=== PATIENT | male | born 1960 | race Caucasian/White ===

== ENCOUNTER 2016-10-11 18:48 | Emergency (ER) | payer MEDICARE, MEDICAID ==
--- NOTE | 2016-10-11 19:21 | NUR ---
CALLED X4; INFORMED PT LEFT AT 1840
== END 2016-10-11 19:22 | disposition left against medical advice (07) ==
LOC: ER 18:49
DX: Z53.21 Procedure and treatment not carried out due to patient leaving prior to being seen by health care provider (principal)

== ENCOUNTER 2016-11-19 05:12 | Emergency (ER) | payer MEDICARE, MEDICAID ==
[~2016-11-19] VITALS: Ht 185.4 cm; Wt 77.1 kg
[2016-11-19 05:20] VITALS: BP 147/93
== END 2016-11-19 07:29 | disposition home or self-care (01) ==
LOC: ER 05:14
DX: S90.852A Superficial foreign body, left foot, initial encounter (principal); E11.9 Type 2 diabetes mellitus without complications; K21.9 Gastro-esophageal reflux disease without esophagitis; F17.200 Nicotine dependence, unspecified, uncomplicated; B19.20 Unspecified viral hepatitis C without hepatic coma; Z98.890 Other specified postprocedural states; W22.8XXA Striking against or struck by other objects, initial encounter; Y93.89 Activity, other specified; Y92.89 Other specified places as the place of occurrence of the external cause; Y99.9 Unspecified external cause status
CPT/HCPCS: 73630-TC; A4606; Z7610

== ENCOUNTER 2017-02-08 03:36 | Emergency (ER) | payer MEDICARE ==
[~2017-02-08] VITALS: Ht 175.3 cm; Wt 68.0 kg
[2017-02-08 04:05] VITALS: BP 141/75
== END 2017-02-08 04:17 | disposition home or self-care (01) ==
LOC: ER 03:38
DX: Z48.00 Encounter for change or removal of nonsurgical wound dressing (principal); B19.20 Unspecified viral hepatitis C without hepatic coma; E11.9 Type 2 diabetes mellitus without complications; K21.9 Gastro-esophageal reflux disease without esophagitis
CPT/HCPCS: 99281; A4606; Z7502; Z7610